=== PATIENT | female | born 1965 | race American Indian/Alaskan Native ===

== ENCOUNTER 2016-08-31 12:53 | Emergency (ER) | payer MEDICARE ==
--- NOTE | 2016-08-31 21:05 | Cat Scan Report ---
FINAL REPORT PROCEDURE: CT CERVICAL SPINE WO CON TECHNIQUE: Computerized tomography of the cervical spine was performed from the skull base to T1 without contrast material. HISTORY: Pain after trauma COMPARISON: No prior studies are available for comparison. FINDINGS: There is straightening of the usual cervical lordosis. There are degenerative disc changes at C3-4, C4-5, and C5-6, with disc space narrowing and osteophyte formation. No acute fracture or subluxation is seen. IMPRESSION: No acute fracture or subluxation is identified.
--- NOTE | 2016-08-31 21:21 | Cat Scan Report ---
FINAL REPORT PROCEDURE: CT FACIAL BONES WO CON TECHNIQUE: Computerized tomography of the facial bones and soft tissues with axial and coronal sections performed from the cranial aspect of the frontal sinuses to the caudal portion of the mandible without contrast material. HISTORY: head injury AND PAIN COMPARISON: No prior studies are available for comparison. FINDINGS: Temporomandibular joints are intact. Numerous teeth are absent bilaterally. There is lucency through the lateral right maxilla, with absence of the premolars, which may be related to remote abscess. Paranasal sinuses are well aerated. No acute fracture is seen. IMPRESSION: No acute fracture is seen
--- NOTE | 2016-08-31 21:35 | Cat Scan Report ---
FINAL REPORT PROCEDURE: CT HEAD/BRAIN WO CON TECHNIQUE: Computerized tomography of the head was performed without contrast material. HISTORY: LOC when hit with a baseball in the face. COMPARISON: No prior studies are available for comparison. FINDINGS: No CT evidence of intracranial mass, hemorrhage, acute territorial infarction, or hydrocephalus. The intracranial arteries are symmetric in density. Calvarium is intact. The visualized paranasal sinuses and mastoids are aerated. IMPRESSION: No CT evidence of acute abnormality
[2016-08-31 22:40] VITALS: BP 154/102
--- NOTE | 2016-08-31 23:28 | Emergency Department Report ---
ED General Adult HPI - General Chief complaint: Pain General Stated complaint: FACIAL NUMBNESS Source: patient, EMS Mode of arrival: Ambulatory Limitations: No Limitations - History of Present Illness Initial comments: This is a 50-year-old female well-nourished with nontoxic or ill in appearance that presents with left sided face pain, neck pain, headache, right shoulder pain status post hit in face by a football last night. Patient stated she denies loss of consciousness but "blanked out for a minute then perked back up" . Patient describes headache as onset that is intermittent with a prescription and description of aching level of 4/10. Patient denies any chest pain, shortness of breath, fever, chills, stiff neck, depression, suicidal thoughts, numbness, tingling, extremity redness, swelling. He denies fall or trauma. Denies abrasion or lacerations. Denies blurry vision. Denies nausea vomiting. Patient states she is currently voluntary at her wits for severe depression but stated she is checking out today and denies any depression or suicidal thoughts. Allergies to iodine and IV dye. Denies significant past medical history. MD Complaint: facial pain, neck pain, headache, right shoulder pain -: days(s) (1) Location: head, face, neck, right, upper extremity Radiation: non-radiation Severity scale (0 -10): 8 Quality: aching Consistency: intermittent Improves with: none Worsens with: none Associated Symptoms: headaches. denies: confusion, chest pain, cough, diaphoresis, fever/chills, loss of appetite, malaise, nausea/vomiting, rash, seizure, shortness of breath, syncope, weakness Treatments Prior to Arrival: none - Related Data Home Medications Medication Instructions Recorded Confirmed Last Taken Dexamethasone 4 mg PO PRN 07/04/13 07/04/13 Unknown Ciprofloxacin HCl [Ciprofloxacin 500 mg DAILY 07/08/13 07/08/13 07/07/13 TAB] Previous Rx's Medication Instructions Recorded Last Taken Type Omeprazole [PriLOSEC] 40 mg PO DAILY #30 capsule. 07/08/13 Unknown Rx HYDROcodone/APAP 5-325 [Mumford 1 - 2 each PO Q4-6H PRN #15 tablet 08/10/13 Unknown Rx 5/325 mg] Cyclobenzaprine HCl [Flexeril 5 MG 5 mg PO TID #15 tab 08/31/16 Unknown Rx TAB] Ibuprofen [Motrin 600 MG tab] 600 mg PO Q8H PRN #15 tablet 08/31/16 Unknown Rx Allergies Allergy/AdvReac Type Severity Reaction Status Date / Time Iodinated Contrast Media - Allergy Rash Verified 07/04/13 14:06 IV Dye iodine Allergy Rash Verified 08/10/13 09:53 ED Review of Systems ROS: Stated complaint: FACIAL NUMBNESS Other details as noted in HPI Constitutional: denies: chills, fever Eyes: denies: eye pain, eye discharge, vision change ENT: denies: ear pain, throat pain Respiratory: denies: cough, shortness of breath, wheezing Cardiovascular: denies: chest pain, palpitations Endocrine: no symptoms reported Gastrointestinal: denies: abdominal pain, nausea, diarrhea Genitourinary: denies: urgency, dysuria, discharge Musculoskeletal: denies: back pain, joint swelling, arthralgia Skin: denies: rash, lesions Neurological: denies: headache, weakness, paresthesias Psychiatric: denies: anxiety, depression, auditory hallucinations, visual hallucinations, homicidal thoughts, suicidal thoughts Hematological/Lymphatic: denies: easy bleeding, easy bruising ED Past Medical Hx - Past Medical History Previous Medical History?: Yes Hx GERD: Yes Hx Arthritis: Yes (RA) Additional medical history: DVT - Surgical History Past Surgical History?: No - Social History Smoking Status: Never Smoker Substance Use Type: None - Medications Home Medications: Home Medications Medication Instructions Recorded Confirmed Last Taken Type Dexamethasone 4 mg PO PRN 07/04/13 07/04/13 Unknown History Ciprofloxacin HCl [Ciprofloxacin 500 mg DAILY 07/08/13 07/08/13 07/07/13 History TAB] Omeprazole [PriLOSEC] 40 mg PO DAILY #30 capsule. 07/08/13 Unknown Rx HYDROcodone/APAP 5-325 [Mumford 1 - 2 each PO Q4-6H PRN #15 tablet 08/10/13 Unknown Rx 5/325 mg] Cyclobenzaprine HCl [Flexeril 5 MG 5 mg PO TID #15 tab 08/31/16 Unknown Rx TAB] Ibuprofen [Motrin 600 MG tab] 600 mg PO Q8H PRN #15 tablet 08/31/16 Unknown Rx ED Physical Exam - General Limitations: No Limitations General appearance: alert, in no apparent distress - Head Head exam: Present: atraumatic, normocephalic, normal inspection - Eye Eye exam: Present: normal appearance, PERRL, EOMI. Absent: scleral icterus, conjunctival injection, nystagmus, periorbital swelling, periorbital tenderness Pupils: Present: normal accommodation - ENT ENT exam: Present: normal exam, normal orophraynx, mucous membranes moist, TM's normal bilaterally, normal external ear exam - Neck Neck exam: Present: normal inspection, full ROM. Absent: tenderness, meningismus, lymphadenopathy, thyromegaly - Respiratory Respiratory exam: Present: normal lung sounds bilaterally. Absent: respiratory distress, wheezes, rales, rhonchi, stridor, chest wall tenderness, accessory muscle use, decreased breath sounds, prolonged expiratory - Cardiovascular Cardiovascular Exam: Present: regular rate, normal rhythm, normal heart sounds. Absent: bradycardia, tachycardia, irregular rhythm, systolic murmur, diastolic murmur, rubs, gallop - GI/Abdominal GI/Abdominal exam: Present: soft, normal bowel sounds. Absent: distended, tenderness, guarding, rebound, rigid, diminished bowel sounds - Rectal Rectal exam: Present: deferred. Absent: other (bladder or bowel instability) - External exam: Present: other - Extremities Exam Extremities exam: Present: normal inspection, full ROM, normal capillary refill. Absent: tenderness, pedal edema, joint swelling, calf tenderness - Expanded Upper Extremity Exam Right Shoulder Exam: Present: normal inspection, full ROM, tenderness. Absent: swelling, abrasion, laceration, ecchymosis, deformity, crepidus, dislocation, erythema, tenderness over AC joint Upper Arm exam: Present: normal inspection, full ROM. Absent: tenderness, swelling, abrasion, laceration, ecchymosis, deformity, crepidus, dislocation, erythema Elbow exam: Present: normal inspection, full ROM. Absent: tenderness, swelling , abrasion, pain w/ pronation/supination, tenderness over radial head Forearm Wrist exam: Present: normal inspection, full ROM. Absent: tenderness, swelling, abrasion, laceration, erythema, tenderness over anatomical snuff box, pain with axial thumb loading Hand Wrist exam: Present: normal inspection, full ROM. Absent: tenderness, swelling, abrasion, erythema, amputation, subungual hematoma Neuro motor exam: Present: wrist extension intact, thumb opposition intact, thumb IP flexion intact, thumb adduction intact, fingers 2-5 abduction intact Neurosensory exam: Present: 2-point discrimination, radial nerve intact, ulnar nerve intact, median nerve intact Vascular: Present: vascular compromise, normal capillary refill - Back Exam Back exam: Present: normal inspection, full ROM. Absent: tenderness, CVA tenderness (R), CVA tenderness (L), muscle spasm, paraspinal tenderness, vertebral tenderness, rash noted - Expanded Back Exam Expanded Back exam: Absent: saddle anesthesia Back exam: Negative Straight Leg Raising: Left, Right - Neurological Exam Neurological exam: Present: alert, oriented X3, CN II-XII intact, normal gait - Expanded Neurological Exam Expanded Patient oriented to: Present: person, place, time Speech: Present: fluid speech Cranial nerves: EOM's Intact: Normal, Gag Reflex: Normal, Tongue Deviation: Normal, Nystagmus: Normal, Facial Sensation: Normal, Facial Palsy with Forehead Movement: Normal, Facial Palsy without Forehead Movement: Normal Cerebellar function: Finger to Nose: Normal, Heel to Simon: Normal, Romberg: Normal Upper motor neuron: Elvis Neglect: Normal, Pronator Drift: Normal, Babinski Sign : Normal, Sensory Extinction: Normal Sensory exam: Upper Extremity Light Touch: Normal, Upper Extremity Pin Prick: Normal, Upper Extremity Temperature: Normal, UE 2 Point Discrimination: Normal, Lower Extremity Light Touch: Normal, Lower Extremity Pin Prick: Normal, Lower Extremity Temperature: Normal, LE 2 Point Discrimination: Normal Motor strength exam: RUE: 5, LUE: 5, RLE: 5, LLE: 5 DTR: bicep (R): 2+, bicep (L): 2+, tricep (R): 2+, tricep (L): 2+, knee (R): 2+ , knee (L): 2+, ankle (R): 2+, ankle (L): 2+ Best Eye Response (Sieper): (4) open spontaneously Best Motor Response (Sieper): (6) obeys commands Best Verbal Response (Sieper): (5) oriented Sieper Total: 15 - Psychiatric Psychiatric exam: Present: normal affect, normal mood. Absent: depressed, agitated, anxious, flat affect, manic, homicidal ideation, suicidal ideation - Skin Skin exam: Present: warm, dry, intact, normal color. Absent: rash ED Course Vital Signs 08/31/16 08/31/16 13:05 22:11 Temperature 98.7 F 97.7 F Pulse Rate 61 86 Respiratory 20 18 Rate Blood Pressure 135/87 Blood Pressure 154/102 [Left] O2 Sat by Pulse 100 98 Oximetry - Reevaluation(s) Reevaluation #1: 08/31/16 23:33 Patient is drinking apply juice and walking around. No signs of distress noted. ED Medical Decision Making - Medical Decision Making Ed course: This is a 51-year-old female that presents with whiplash symptoms 1- prior to my interview, Ct head/hyacinth, cervical, and facial bone has been obtained. Dictated by Dr. Jain. Normal findings. 2- After my physical exam, an xr of right shoulder has been obtained. 3- Pt received ibuprofen 600 mg by mouth in the ED. 4- at the time of discharge the patient does not seem toxic or ill in appearance. No signs of distress noted. Patient agrees to discharge treatment plan. No further questions noted by the patient. 5-0 his was instructed to follow-up with your primary care doctor in 3-5 days or if symptoms worsen such as bladder or bowel stability, chest pain, short of breath, numbness or tingling sensation in extremities, headache, dizziness, visual changes, nausea vomiting, or abdominal pain, upper back to emergency room as was possible. 6-patient was prescribed ibuprofen and Flexeril at that time was discharged and was instructed not operate heavy machinery while taking Flexeril due to sedation Critical care attestation.: If time is entered above; I have spent that time in minutes in the direct care of this critically ill patient, excluding procedure time. ED Disposition Clinical Impression: Whiplash Qualifiers: Encounter type: initial encounter Qualified Code(s): S13.4XXA - Sprain of ligaments of cervical spine, initial encounter Shoulder strain Qualifiers: Encounter type: initial encounter Laterality: right Qualified Code(s): S46.911A - Strain of unspecified muscle, fascia and tendon at shoulder and upper arm level, right arm, initial encounter Disposition: - TO HOME OR SELFCARE Is pt being admited?: No Does the pt Need Aspirin: No Condition: Stable Instructions: Cervical Spine Strain (ED), Ibuprofen (By mouth) Additional Instructions: follow-up with your primary care doctor in 3-5 days or if symptoms worsen such as bladder or bowel stability, chest pain, short of breath, numbness or tingling sensation in extremities, headache, dizziness, visual changes, nausea vomiting, or abdominal pain, upper back to emergency room as was possible. Take ibuprofen and Flexeril as prescribed. Do not operate heavy machinery while taking Flexeril due to sedation If symptoms continue or view right shoulder pain and unable to move follow-up with the orthopedic doctor in 24 hours. Prescriptions: Cyclobenzaprine HCl [Flexeril 5 MG TAB] 5 mg PO TID #15 tab Ibuprofen [Motrin 600 MG tab] 600 mg PO Q8H PRN #15 tablet PRN Reason: Pain Referrals: PRIMARY CARE, [Primary Care Provider] - 3-5 Days BRYON GARNER MD [Staff Physician] - 3-[address] [facility] [Outside] - 3-5 Days [facility] [Outside] - 3-5 Days APOLLO MCFADDEN JR, MD [Staff Physician] - 3-5 Days Forms: Work/School Release Form(ED)
--- NOTE | 2016-09-01 00:01 | XRay Report ---
FINAL REPORT EXAM: XR SHOULDER 2 RT HISTORY: pain s/p blunt trauma COMPARISONS: None. FINDINGS: 2 views right shoulder Right glenohumeral joint appears intact. [id number] acromioclavicular much greater than glenohumeral osteoarthrosis. Acromioclavicular and coracoclavicular intervals are within normal limits. No displaced fractures. Incomplete evaluation of the adjacent right lung is unremarkable. IMPRESSION: Right glenohumeral appears intact. 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 If there is concern for superimposed acromial fracture, which could go undetected on this exam, consider CT.
--- NOTE | 2016-09-01 01:04 | Cat Scan Report ---
FINAL REPORT EXAM: CT UPPER EXTREM RT WO CON HISTORY: shoulder pain TRAUMA TO RT SHOULDER TECHNIQUE: CT images are acquired through the right shoulder without contrast. Transaxial , coronal and sagittal reformations are provided. PRIORS: Radiograph of the same date FINDINGS: Well corticated and chronic appearing acromial and distal clavicular fragmentation. Mild to moderate acromioclavicular osteoarthrosis. Glenohumeral joint is intact. Imaged portion of the humerus and scapula are intact. No rib fractures are seen. Right lung demonstrates basilar atelectasis/scarring. IMPRESSION: No fracture or dislocation involving the right glenohumeral or acromioclavicular joints. Calcification/fragmentation at the anterior/distal aspect of the acromion appears chronic and may represent a deltoid tug lesion or ununited ossification center.
== END 2016-09-01 01:30 | disposition home or self-care (01) ==
LOC: ED 12:53
DX: S13.4XXA Sprain of ligaments of cervical spine, initial encounter (principal); S46.911A Strain of unspecified muscle, fascia and tendon at shoulder and upper arm level, right arm, initial encounter; R51 Headache; K21.9 Gastro-esophageal reflux disease without esophagitis; M06.9 Rheumatoid arthritis, unspecified; Z86.718 Personal history of other venous thrombosis and embolism; Z91.041 Radiographic dye allergy status; W21.01XA Struck by football, initial encounter; Y93.89 Activity, other specified; Y99.8 Other external cause status; Y92.89 Other specified places as the place of occurrence of the external cause
CPT/HCPCS: 70450; 70486; 72125; 99284

== ENCOUNTER 2017-05-09 08:08 | Outpatient (CLI) | payer MEDICARE ==
[2017-05-09 08:21] LABS: Blood Urea Nitrogen 8 mg/dL (7-17)
--- NOTE | 2017-05-09 11:40 | Cat Scan Report ---
CT ABDOMEN PELVIS WITH AND WITHOUT CONTRAST: HISTORY: abdominal pain. COMPARISON: No recent comparison. TECHNIQUE: Helical CT in 1.25mm intervals before and after IV contrast. Sagittal and coronal reconstructions. FINDINGS: Lung bases: Adequately aerated. Heart size is normal. Small hiatal hernia is identified with surgical suture line. Liver: Normal. Biliary system: Normal. Pancreas: Normal. Spleen: Normal. Kidneys/ureters/bladder: Normal. Adrenal glands: Normal. Aorta: Normal. Intestines: Surgical changes are noted in the stomach, correlate with history. This may represent gastric sleeve surgery changes. Surgical suture line is also noted in the mid small bowel, correlate with history. There are scattered diverticula in the distal colon. No evidence for obstruction, focal inflammation or mass. Appendix: Normal. Pelvic viscera: Normal. Ascites: None. Adenopathy: None. Musculoskeletal: Normal. IMPRESSION: No acute inflammatory process. Surgical changes in the stomach and mid small bowel. Small hiatal hernia. Mild diverticulosis of the distal colon.
== END 2017-05-09 08:09 | disposition home or self-care (01) ==
LOC: CT 08:08
PROVIDERS: ATTEND Specialist
DX: K44.9 Diaphragmatic hernia without obstruction or gangrene (principal); K57.30 Diverticulosis of large intestine without perforation or abscess without bleeding
CPT/HCPCS: 36415; 74178; 82565; 84520; Q9967

== ENCOUNTER 2017-06-20 06:20 | Day surgery (SDC) | payer MEDICARE ==
--- NOTE | 2017-06-20 08:01 | Anesthesia Day of Surgery ---
Anesthesia Day of Surgery - Day of Surgery Patient Examined: Yes Patient H&P Reviewed: Yes Patient is NPO: Yes Beta Blockers: No
--- NOTE | 2017-06-20 08:02 | Anesthesia Consultation ---
Anesthesia Consult and Med Hx - Airway Anesthetic Teeth Evaluation: Good ROM Head & Neck: Adequate Mental/Hyoid Distance: Adequate Mallampati Class: Class III Intubation Access Assessment: Probably Good - Pulmonary Exam CTA: Yes - Cardiac Exam Cardiac Exam: No Murmur - Pre-Operative Health Status ASA Pre-Surgery Classification: ASA3 Proposed Anesthetic Plan: MAC - Pulmonary Hx Smoking: No Hx Asthma: No Hx Respiratory Symptoms: Yes (Recent Cold, dry cough) SOB: No COPD: No Home Oxygen Therapy: No Hx Pneumonia: No Hx Sleep Apnea: No - Cardiovascular System Hx Hypertension: Yes Hx Coronary Artery Disease: No Hx Heart Attack/AMI: No Hx Angina: No Hx Percutaneous Transluminal Coronary Angioplasty (PTCA): No Hx Cardia Arrhythmia: No Hx Pacemaker: No Hx Internal Defibrillator: No Hx Valvular Heart Disease: No Hx Heart Murmur: No Hx Peripheral Vascular Disease: No - Central Nervous System Hx Neuromuscular Disorder: No Hx Seizures: No CVA: No Hx Back Pain: No Hx Psychiatric Problems: No - Gastrointestinal Hx Ulcer: No Hx Gastroesophageal Reflux Disease: Yes - Endocrine Hx Renal Disease: No Hx End Stage Renal Disease: No Hx Cirrhosis: No Hx Liver Disease: No Hx Insulin Dependent Diabetes: No Hx Non-Insulin Dependent Diabetes: No Hx Thyroid Disease: No Hx Hypothyroidism: No Hx Hyperthyroidism: No - Hematic Hx Anemia: Yes (Blood transfusion 2012) - Other Systems Hx Alcohol Use: No Hx Substance Use: No Hx Cancer: No Hx Obesity: Yes
[2017-06-20] MEDS ORDERED: NACL 0.9% 1000 ML 1,000 ML IV SCH (09:00)
[2017-06-20] MEDS ORDERED: WATER FOR IRRIG STERILE IR ONE (09:51)
[2017-06-20] MEDS ORDERED: DIPRIVAN 10 MG/ML IV ONE (09:53)
[2017-06-20 11:08] VITALS: BP 139/95
--- NOTE | 2017-06-20 11:34 | Post Anesthesia Evaluation ---
- Post Anesthesia Evaluation Patient Participated: Yes Airway Patent: Yes Stable Respiratory Function: Yes Nausea/Vomiting: No Temp > 96.8F: Yes Pain Manageable: Yes Adequeate Hydration: Yes Anesthesia Complications: No
== END 2017-06-20 06:21 | disposition home or self-care (01) ==
LOC: GIO 06:20
PROVIDERS: ATTEND Specialist
DX: K21.0 Gastro-esophageal reflux disease with esophagitis (principal); K28.9 Gastrojejunal ulcer, unspecified as acute or chronic, without hemorrhage or perforation; K31.89 Other diseases of stomach and duodenum; I10 Essential (primary) hypertension; E66.9 Obesity, unspecified; M19.90 Unspecified osteoarthritis, unspecified site; Z98.84 Bariatric surgery status; Z91.041 Radiographic dye allergy status
CPT/HCPCS: 43235; J2704; J7030

== ENCOUNTER 2017-07-17 11:00 | Outpatient (CLI) | payer MEDICARE | END 2017-07-18 11:16 | disposition home or self-care (01) | LOC: SLR 11:00 | PROVIDERS: ATTEND Otolaryngology | DX: G47.30 Sleep apnea, unspecified (principal) | CPT/HCPCS: 95810 ==

== ENCOUNTER 2020-10-02 14:59 | Emergency (ER) | payer MEDICARE ==
[2020-10-02 15:28] VITALS: BP 134/97
--- NOTE | 2020-10-02 17:16 | XRay Report ---
RIGHT KNEE 3 VIEW(S) INDICATION / CLINICAL INFORMATION: right posterior knee pain after slip COMPARISON: None available. FINDINGS: BONES / JOINT(S): No acute fracture or subluxation. No significant arthritis. There is a suprapatella r joint effusion. SOFT TISSUES: No significant abnormality. ADDITIONAL FINDINGS: None. IMPRESSION: 1. No displaced fracture dislocation. 2. Suprapatellar joint effusion Signer Name: Sanchez Calzada MD Signed: 10/02/2020 5:12 PM Workstation Name: [id number]
--- NOTE | 2020-10-02 17:49 | Emergency Department Report ---
ED Extremity Problem HPI - General Chief complaint: Extremity Problem,Nontraumatic Stated complaint: KNEE PAINS Time Seen by Provider: 10/02/20 16:45 Source: patient Mode of arrival: Ambulatory Limitations: No Limitations - History of Present Illness Initial comments: Patient is a 55-year-old female presents emergency room with complaints of right posterior knee pain that began 2 days ago. She states 2 days ago she slipped on some grease but did not fall to the ground. She states her leg was planted and her knee twisted. she states since then she has had right posterior knee pain and pain with movement. She states that she also noticed some swelling to her right leg and her right thigh. She states that she does have some mild calf pain. She is ambulatory. She denies any numbness or weakness or chest pain or shortness of breath or hemoptysis. PMHx RA, GERD, HTN, DVT. Allergy to IV dye. Severity scale (0 -10): 10 - Related Data Home Medications Medication Instructions Recorded Confirmed Last Taken Losartan/Hydrochlorothiazide 5 mg PO DAILY 06/20/17 06/20/17 06/19/17 10:30 [Losartan-Hctz 100-25 mg Tab] dexAMETHasone [Decadron] 4 mg PO DAILY 06/20/17 06/20/17 06/18/17 10:30 Previous Rx's Medication Instructions Recorded Last Taken Type Acetaminophen/Codeine [Tylenol 1 tab PO Q6H PRN #10 tab 10/02/20 Unknown Rx /Codeine # 3 tab] Allergies Allergy/AdvReac Type Severity Reaction Status Date / Time Iodinated Contrast Media Allergy Rash Verified 07/04/13 14:06 [Iodinated Contrast Media - IV Dye] iodine Allergy Rash Verified 08/10/13 09:53 ED Review of Systems ROS: Stated complaint: KNEE PAINS Other details as noted in HPI Comment: All other systems reviewed and negative ED Past Medical Hx - Past Medical History Previous Medical History?: Yes Hx Hypertension: Yes Hx Heart Attack/AMI: No Hx GERD: Yes Hx Liver Disease: No Hx Renal Disease: No Hx Arthritis: Yes (RA) Hx Seizures: No Hx Asthma: No Hx COPD: No Additional medical history: DVT - Surgical History Hx Pacemaker: No Hx Internal Defibrillator: No - Social History Smoking Status: Never Smoker - Medications Home Medications: Home Medications Medication Instructions Recorded Confirmed Last Taken Type Losartan/Hydrochlorothiazide 5 mg PO DAILY 06/20/17 06/20/17 06/19/17 10:30 History [Losartan-Hctz 100-25 mg Tab] dexAMETHasone [Decadron] 4 mg PO DAILY 06/20/17 06/20/17 06/18/17 10:30 History Acetaminophen/Codeine [Tylenol 1 tab PO Q6H PRN #10 tab 10/02/20 Unknown Rx /Codeine # 3 tab] ED Physical Exam - General Limitations: No Limitations General appearance: alert, in no apparent distress - Head Head exam: Present: atraumatic, normocephalic - Eye Eye exam: Present: normal appearance - ENT ENT exam: Present: mucous membranes moist - Respiratory Respiratory exam: Absent: respiratory distress, accessory muscle use - Extremities Exam Extremities exam: Present: other (ttp to the right posterior knee, mild ttp to the right posterior calf, there is moderate non pitting edema to the RLE in the thigh and knee region, no skin changes, FROM Of the RLE, neurovascularly intact) - Neurological Exam Neurological exam: Present: alert, oriented X3 - Psychiatric Psychiatric exam: Present: normal affect, normal mood - Skin Skin exam: Present: warm, dry ED Course Vital Signs 10/02/20 15:27 Temperature 98.8 F Pulse Rate 79 Respiratory 18 Rate Blood Pressure 134/97 [Right] O2 Sat by Pulse 97 Oximetry ED Medical Decision Making - Radiology Data Radiology results: report reviewed Ordering Physician: JESS CRUZ Date of Service: 10/02/20 Procedure(s): XR knee 3V RT Accession Number(s): [id number] cc: JESS CRUZ Fluoro Time In Minutes: RIGHT KNEE 3 VIEW(S) INDICATION / CLINICAL INFORMATION: right posterior knee pain after slip COMPARISON: None available. FINDINGS: BONES / JOINT(S): No acute fracture or subluxation. No significant arthritis. There is a suprapatellar joint effusion. SOFT TISSUES: No significant abnormality. ADDITIONAL FINDINGS: None. IMPRESSION: 1. No displaced fracture dislocation. 2. Suprapatellar joint effusion Signer Name: Sanchez Calzada MD Signed: 10/02/2020 5:12 PM Workstation Name: [id number] Transcribed By: DB Dictated By: SANCHEZ CALZADA MD Electronically Authenticated By: SANCHEZ CALZADA MD Signed Date/Time: 10/02/201711 DD/ 10 TD/TT: Ordering Physician: JESS CRUZ Date of Service: 10/02/20 Procedure(s): VL venous duplex LE RT Accession Number(s): [id number] cc: JESS CRUZ DUPLEX DOPPLER LOWER EXTREMITY VEINS, RIGHT INDICATION: right posterior knee pain, leg swelling. TECHNIQUE: Duplex doppler imaging was performed through the veins of the right lower extremity using venous compression and other maneuvers. COMPARISON: None available. FINDINGS: Common Femoral vein: Negative. Superficial Femoral vein: Negative. Popliteal vein: Negative. Calf veins: Negative. Additional findings: There is a prominent fluid collection with internal echoes present within the posterior and anterior aspect of the knee. IMPRESSION: 1. No sonographic evidence for DVT in the right lower extremity. 2. Large fluid collection seen both posteriorly and anteriorly to the knee that could represent underlying hematoma. Recommend dedicated cross-sectional imaging such as CT for further evaluation. Signer Name: Dewayne Rangel MD Signed: 10/02/2020 6:09 PM Workstation Name: [id number] Transcribed By: Dictated By: Dewayne Rangel MD Electronically Authenticated By: Dewayne Rangel MD Signed Date/Time: 10/02/201808 DD/ 02 TD/TT: - Medical Decision Making Patient is a 55-year-old female presents emergency room with complaints of right posterior knee pain that began 2 days ago. She states 2 days ago she slipped on some grease but did not fall to the ground. She states her leg was planted and her knee twisted. she states since then she has had right posterior knee pain and pain with movement. She states that she also noticed some swelling to her right leg and her right thigh. She states that she does have some mild calf pain. She is ambulatory. She denies any numbness or weakness or chest pain or shortness of breath or hemoptysis. PMHx RA, GERD, HTN, DVT. Allergy to IV dye. vitals are normal. on exam: ttp to the right posterior knee, mild ttp to the right posterior calf, there is moderate non pitting edema to the RLE in the thigh and knee region, no skin changes, FROM Of the RLE, neurovascularly intact. XR right knee: 1. No displaced fracture dislocation. 2. Suprapatellar joint effusion. US RLE: 1. No sonographic evidence for DVT in the right lower extremity. 2. Large fluid collection seen both posteriorly and anteriorly to the knee that could represent underlying hematoma. Recommend dedicated cross- sectional imaging such as CT for further evaluation. Symptoms and examination likely related to hemarthrosis from internal derangement. Discussed case with Dr. Cristiano Ansari, ER attending who agreed with outpatient orthopedic follow-up. Patient placed in knee immobilizer and given crutches by nurse and made neurovascular intact. Advised patient Please take medication as prescribed as needed. Follow-up with orthopedic doctor. Please avoid bearing weight on the leg. Return to emergency room for any new or worse symptoms. Critical care attestation.: If time is entered above; I have spent that time in minutes in the direct care of this critically ill patient, excluding procedure time. ED Disposition Clinical Impression: Right knee pain Qualifiers: Chronicity: acute Qualified Code(s): M25.561 - Pain in right knee Knee effusion Qualifiers: Laterality: right Qualified Code(s): M25.461 - Effusion, right knee Disposition: DC- TO HOME OR SELFCARE Is pt being admited?: No Does the pt Need Aspirin: No Condition: Stable Instructions: Acute Knee Pain, Adult, Knee Effusion Additional Instructions: Please take medication as prescribed as needed. Follow-up with orthopedic doctor. Please avoid bearing weight on the leg. Return to emergency room for any new or worse symptoms. Prescriptions: Acetaminophen/Codeine [Tylenol /Codeine # 3 tab] 1 tab PO Q6H PRN #10 tab PRN Reason: pain Referrals: BRYON GARNER MD [Staff Physician] - 2-3 Days [facility] [Provider Group] - 2-3 Days Time of Disposition: 18:30 Print Language: PERUVIAN
--- NOTE | 2020-10-02 18:13 | Vascular Lab Report ---
DUPLEX DOPPLER LOWER EXTREMITY VEINS, RIGHT INDICATION: right posterior knee pain, leg swelling. TECHNIQUE: Duplex doppler imaging was performed through the veins of the right lower extremity using venous comp ression and other maneuvers. COMPARISON: None available. FINDINGS: Common Femoral vein: Negative. Superficial Femoral vein: Negative. Popliteal vein: Negative. Calf veins: Negative. Additional findings: There is a prominent fluid collection with internal echoes present within the po sterior and anterior aspect of the knee. IMPRESSION: 1. No sonographic evidence for DVT in the right lower extremity. 2. Large fluid collection seen both posteriorly and anteriorly to the knee that could represent under lying hematoma. Recommend dedicated cross-sectional imaging such as CT for further evaluation. Signer Name: Dewayne Rangel MD Signed: 10/02/2020 6:09 PM Workstation Name: [id number]
== END 2020-10-02 18:59 | disposition home or self-care (01) ==
LOC: ED 14:59
DX: M25.561 Pain in right knee (principal); M25.461 Effusion, right knee; I10 Essential (primary) hypertension; M19.90 Unspecified osteoarthritis, unspecified site; K21.9 Gastro-esophageal reflux disease without esophagitis; Z91.040 Latex allergy status
CPT/HCPCS: 99283; 99284